=== PATIENT | female | born 1965 | race African-American/Black ===

== ENCOUNTER 2018-01-01 03:42 | Inpatient (IN) | payer BC ==
[~2018-01-01] VITALS: Ht 157.5 cm; Wt 81.6 kg
[2018-01-01] MEDS ORDERED: KETOROLAC 30MG/ML VIAL IV STA (06:31)
[2018-01-01] MEDS ORDERED: SODIUM CHLORIDE 0.9% 1,000 ML IV ONE (06:31)
[2018-01-01 06:58] LABS: HEMATOCRIT. 38.3 % (36.0-48.0); HEMOGLOBIN. 12.2 g/dL (12.0-16.0); MEAN CORPUSCULAR HEMOGLOBIN 27.5 pg (28.0-32.0); MEAN CORPUSCULAR VOLUME 86.1 fL (81.0-99.0); MEAN PLATELET VOLUME 7.6 fl (7.4-10.4); PLATELET 236 x1000/uL (130-400); RED BLOOD CELL COUNT 4.45 mill/uL (4.2-5.4); RED CELL DISTRIBUTION WIDTH 16.5 % (11.6-14.6)
[2018-01-01 07:05] LABS: CLARITY URINE TURBID (CLEAR); COLOR URINE ORANGE (YELLOW); KETONES URINE TRACE (NEGATIVE); LEUKOCYTE ESTERASE URINE TRACE (NEGATIVE); NITRITE URINE POSITIVE (NEGATIVE); OCCULT BLOOD URINE NEGATIVE (NEGATIVE); PROTEIN URINE 1+ (NEGATIVE)
[2018-01-01 07:10] LABS: CHLORIDE 108 mEq/L (98-107)
[2018-01-01 07:23] LABS: PLATELET ESTIMATE NORMAL
[2018-01-01] MEDS ORDERED: MORPHINE SULFATE 4 MG/ML CPJ (NOT FOR IM USE) IV STA (07:44)
[2018-01-01] MEDS ORDERED: ONDANSETRON HCL 4MG/2ML VIAL IV STA (07:44)
[2018-01-01] MEDS ORDERED: PIPERACILLIN/TAZ 3.375G PREMIX 50 ML IV ONE (07:45)
[2018-01-01] MEDS ORDERED: VANCOMYCIN 1 G PREMIX 200 ML IV ONE (07:45)
[2018-01-01] MEDS ORDERED: SODIUM CHLORIDE 0.9% 1000ML BAG (SEPSIS BOLUS) IV ONE (07:45)
[2018-01-01 08:52] LABS: *AMPHETAMINES SCREEN URINE NEGATIVE (NEGATIVE); *BARBITURATES SCREEN URINE NEGATIVE (NEGATIVE); *BENZODIAZEPINES SCREEN URINE NEGATIVE (NEGATIVE); *COCAINE SCREEN URINE NEGATIVE (NEGATIVE); CANNABINOID URINE SCREEN NEGATIVE (NEGATIVE); METHADONE URINE SCREEN NEGATIVE (NEGATIVE); OPIATES URINE SCREEN NEGATIVE (NEGATIVE); PHENCYCLIDINE URINE SCREEN NEGATIVE (NEGATIVE)
[2018-01-01 11:50] VITALS: BP 111/67
[2018-01-01 12:00] VITALS: BP 111/59
[2018-01-01] MEDS ORDERED: DOCUSATE SODIUM 100MG CAPSULE PO PRN (12:45)
[2018-01-01] MEDS ORDERED: CLONIDINE 0.1MG TABLET PO PRN (12:45)
[2018-01-01] MEDS ORDERED: ONDANSETRON HCL 4MG/2ML VIAL IV PRN (12:45)
[2018-01-01] MEDS ORDERED: ENOXAPARIN 40MG/0.4ML SYR SUBCUT SCH (12:45)
[2018-01-01] MEDS: ENOXAPARIN 30MG/0.3ML SYR SUBCUT SCH ×2 (13:33→20:41)
[2018-01-01] MEDS: HYDROCODONE/ACETAMINOPHEN 5/325MG TABLET PO PRN (13:36)
[2018-01-01 16:00] VITALS: BP 102/57
[2018-01-01] MEDS: LEVOFLOXACIN 500MG PREMIX 100 ML IV SCH ×2 (16:30→16:37)
[2018-01-01] MEDS: MORPHINE SULFATE 4 MG/ML CPJ (NOT FOR IM USE) IV PRN (17:23)
[2018-01-01] MEDS: VANCOMYCIN 750 MG PREMIX 150 ML IV SCH (17:57)
[2018-01-01 20:00] VITALS: BP 125/71
[2018-01-01] MEDS ORDERED: POTASSIUM CHLORIDE 20MEQ TABLET SR PO NR (20:30)
[2018-01-01] MEDS ORDERED: LACTULOSE 20G/30ML UDC PO PRN (20:30)
[2018-01-01] MEDS: ACETAMINOPHEN 325MG TABLET PO PRN (20:50)
[2018-01-02] VITALS: BP 114/58
[2018-01-02] MEDS: MORPHINE SULFATE 4 MG/ML CPJ (NOT FOR IM USE) IV PRN ×3 (02:17→19:32)
[2018-01-02] MEDS: VANCOMYCIN 750 MG PREMIX 150 ML IV SCH ×2 (02:17→15:14)
[2018-01-02] MEDS: ACETAMINOPHEN 325MG TABLET PO PRN (06:12)
[2018-01-02 06:35] LABS: HEMATOCRIT. 33.4 % (36.0-48.0); HEMOGLOBIN. 10.8 g/dL (12.0-16.0); MEAN CORPUSCULAR HEMOGLOBIN 27.8 pg (28.0-32.0); MEAN CORPUSCULAR VOLUME 86.5 fL (81.0-99.0); MEAN PLATELET VOLUME 8.5 fl (7.4-10.4); PLATELET 223 x1000/uL (130-400); RED BLOOD CELL COUNT 3.86 mill/uL (4.2-5.4); RED CELL DISTRIBUTION WIDTH 16.1 % (11.6-14.6)
[2018-01-02 07:09] LABS: CHLORIDE 108 mEq/L (98-107)
[2018-01-02 08:00] VITALS: BP 106/56
[2018-01-02] MEDS: HYDROCODONE/ACETAMINOPHEN 5/325MG TABLET PO PRN ×3 (09:26→21:12)
[2018-01-02] MEDS: ENOXAPARIN 30MG/0.3ML SYR SUBCUT SCH ×2 (09:26→21:06)
[2018-01-02 12:00] VITALS: BP 110/59
[2018-01-02 13:31] LABS: PLATELET ESTIMATE NORMAL
[2018-01-02] MEDS ORDERED: LIDOCAINE HCL/EPINEPHRINE 1%-EPI 1:100,000 30 ML VIAL INFIL NR (13:45)
[2018-01-02 16:00] VITALS: BP 138/77
[2018-01-02 20:00] VITALS: BP 137/76
[2018-01-03] VITALS: BP 109/68
[2018-01-03] MEDS: HYDROCODONE/ACETAMINOPHEN 5/325MG TABLET PO PRN ×2 (01:24→05:59)
[2018-01-03] MEDS: VANCOMYCIN 750 MG PREMIX 150 ML IV SCH ×2 (03:05→23:20)
[2018-01-03 04:00] VITALS: BP 115/52
[2018-01-03 07:14] LABS: HEMATOCRIT. 33.8 % (36.0-48.0); HEMOGLOBIN. 10.9 g/dL (12.0-16.0); MEAN CORPUSCULAR HEMOGLOBIN 27.9 pg (28.0-32.0); MEAN CORPUSCULAR VOLUME 86.5 fL (81.0-99.0); MEAN PLATELET VOLUME 8.2 fl (7.4-10.4); PLATELET 245 x1000/uL (130-400); RED CELL DISTRIBUTION WIDTH 15.9 % (11.6-14.6)
[2018-01-03 08:00] VITALS: BP 120/60
[2018-01-03] MEDS ORDERED: MORPHINE SULFATE 4 MG/ML CPJ (NOT FOR IM USE) IV PRN (08:11)
[2018-01-03] MEDS: ENOXAPARIN 30MG/0.3ML SYR SUBCUT SCH ×2 (08:43→21:00)
[2018-01-03 10:53] LABS: CHLORIDE 104 mEq/L (98-107)
[2018-01-03 11:03] LABS: PLATELET ESTIMATE NORMAL
[2018-01-03 11:47] VITALS: BP 116/59
[2018-01-03] MEDS ORDERED: VANCOMYCIN 1 G PREMIX 200 ML IV SCH (13:00)
[2018-01-03] MEDS ORDERED: TETANUS AND DIPHTHERIA TOX/PF 0.5ML SYR (ADULT) IM ONE (14:30)
[2018-01-03] MEDS: MORPHINE SULFATE 4 MG/ML CPJ (NOT FOR IM USE) IV PRN ×2 (15:03→20:24)
[2018-01-03] MEDS: LEVOFLOXACIN 500MG PREMIX 100 ML IV SCH (18:52)
[2018-01-03 20:00] VITALS: BP 119/77
[2018-01-03] MEDS ORDERED: POTASSIUM CHLORIDE 20MEQ TABLET SR PO SCH (20:00)
[2018-01-04] VITALS: BP 111/57
[2018-01-04] MEDS: MORPHINE SULFATE 4 MG/ML CPJ (NOT FOR IM USE) IV PRN ×3 (00:39→20:05)
[2018-01-04 04:00] VITALS: BP 120/81
[2018-01-04] MEDS: VANCOMYCIN 750 MG PREMIX 150 ML IV SCH ×2 (06:27→13:56)
[2018-01-04] MEDS: ENOXAPARIN 30MG/0.3ML SYR SUBCUT SCH ×2 (09:03→20:02)
[2018-01-04] MEDS ORDERED: TETANUS, DIPHTHERIA, PERTUSSIS VAC/PF 0.5ML (>7YR OLD) IM ONE (17:00)
[2018-01-04] MEDS: LEVOFLOXACIN 500MG PREMIX 100 ML IV SCH (17:29)
[2018-01-04 20:00] VITALS: BP 117/61
[2018-01-04] MEDS: VANCOMYCIN 1250MG in DEXTROSE 5% WATER 250ML IV SCH (22:46)
[2018-01-05] VITALS: BP 120/77
[2018-01-05 04:00] VITALS: BP 117/61
[2018-01-05] MEDS: MORPHINE SULFATE 4 MG/ML CPJ (NOT FOR IM USE) IV PRN (05:56)
[2018-01-05] MEDS: VANCOMYCIN 1250MG in DEXTROSE 5% WATER 250ML IV SCH ×2 (06:00→14:00)
[2018-01-05] MEDS: HYDROCODONE/ACETAMINOPHEN 5/325MG TABLET PO PRN (06:55)
[2018-01-05 08:00] VITALS: BP 122/70
[2018-01-05] MEDS: ENOXAPARIN 30MG/0.3ML SYR SUBCUT SCH (09:00)
[2018-01-05 12:00] VITALS: BP 128/69
[2018-01-05 15:56] VITALS: BP 122/70
== END 2018-01-05 17:38 | disposition home health service (06) | DRG 872 ==
LOC: ER 03:42 → 6EST 08:22 → EDBEDREQSVC 08:26 → EDBEDREQ 08:26 → EDBEDREQTM 08:26 → ENRESERV 10:11
PROVIDERS: ADMIT Hospitalist; ATTEND Hospitalist
PROC: 0H98XZZ Drainage of Buttock Skin, External Approach (ICD-10-PCS; principal; 2018-01-03)
DX: A41.9 Sepsis, unspecified organism (principal); E66.9 Obesity, unspecified; L02.31 Cutaneous abscess of buttock; L03.317 Cellulitis of buttock; N39.0 Urinary tract infection, site not specified; Z68.32 Body mass index [BMI] 32.0-32.9, adult; Z72.0 Tobacco use
CPT/HCPCS: 36415; 71045; 80053; 80202; 80305; 81003; 83605; 83735; 84132; 85025; 87040; 87070; 87076; 87086; 87205; 90714; 90715; 93005; 93970; 96361; 96365; 96366; 96368; 96375; 99285; C1893; J1650; J1885; J1956; J2270; J2405; J2543; J3370; J7030; J7040; J7060

== ENCOUNTER 2018-04-19 12:00 | Emergency (ER) | payer SELFPAY ==
[~2018-04-19] VITALS: Ht 154.9 cm; Wt 83.0 kg
[2018-04-19] MEDS ORDERED: IBUPROFEN 600MG TABLET PO ONE (13:15)
[2018-04-19 14:57] LABS: BASOPHILS % 1.3 % (0.0-2.0); EOSINOPHILS % 3.4 % (0.0-5.0); HEMATOCRIT. 37.9 % (36.0-48.0); HEMOGLOBIN. 12.1 g/dL (12.0-16.0); LYMPHOCYTES % 15.4 % (20.0-50.0); MEAN CORPUSCULAR HEMOGLOBIN 26.9 pg (28.0-32.0); MEAN CORPUSCULAR VOLUME 84.4 fL (81.0-99.0); MEAN PLATELET VOLUME 7.9 fl (7.4-10.4); MONOCYTES % 6.4 % (2.0-8.0); NEUTROPHILS % 73.5 % (40.0-76.0); PLATELET 252 x1000/uL (130-400); RED BLOOD CELL COUNT 4.48 mill/uL (4.2-5.4); RED CELL DISTRIBUTION WIDTH 16.8 % (11.6-14.6)
[2018-04-19] MEDS ORDERED: LIDOCAINE HCL 1% 20ML VIAL (Pyxis) INJ INFIL ONE (15:00)
[2018-04-19 15:01] LABS: CHLORIDE 110 mEq/L (98-107)
[2018-04-19 15:02] LABS: PROTHROMBIN TIME 10.5 sec (9.4-11.6)
[2018-04-19] MEDS ORDERED: LIDOCAINE HCL/PF 1% 10 MG/ML 5ML VIAL INL NR (15:10)
[2018-04-19 16:07] VITALS: BP 139/87
== END 2018-04-19 16:23 | disposition home or self-care (01) ==
LOC: ER 12:59
DX: L02.31 Cutaneous abscess of buttock (principal); I10 Essential (primary) hypertension
CPT/HCPCS: 10060; 36415; 80053; 81025; 85025; 85610; 99284; J3490

== ENCOUNTER 2020-02-07 12:50 | Emergency (ER) | payer BC ==
[~2020-02-07] VITALS: Ht 154.9 cm; Wt 92.9 kg
[2020-02-07] MEDS ORDERED: KETOROLAC 30MG/ML VIAL IV STA (13:21)
[2020-02-07] MEDS ORDERED: SODIUM CHLORIDE 0.9% 1,000 ML IV ONE (13:21)
[2020-02-07 14:05] LABS: EOSINOPHILS % 3.3 % (0.0-5.0); HEMATOCRIT. 45.8 % (36.0-48.0); HEMOGLOBIN. 15.4 g/dL (12.0-16.0); LYMPHOCYTES % 24.2 % (20.0-50.0); MEAN CORPUSCULAR VOLUME 92.6 fL (81.0-99.0); MONOCYTES % 5.5 % (2.0-8.0); PLATELET 221 x1000/uL (130-400); RED BLOOD CELL COUNT 4.95 mill/uL (4.2-5.4); RED CELL DISTRIBUTION WIDTH 13.3 % (11.6-14.6)
[2020-02-07 15:32] LABS: CLARITY URINE CLEAR (CLEAR); COLOR URINE YELLOW (YELLOW); KETONES URINE NEGATIVE (NEGATIVE); LEUKOCYTE ESTERASE URINE NEGATIVE (NEGATIVE); NITRITE URINE NEGATIVE (NEGATIVE); OCCULT BLOOD URINE NEGATIVE (NEGATIVE); PROTEIN URINE NEGATIVE (NEGATIVE); SPECIFIC GRAVITY URINE 1.015 (1.005-1.030); UROBILINOGEN URINE 0.2 E.U./dL (0.2-1.0)
[2020-02-07 15:39] LABS: CHLORIDE 108 mEq/L (98-107)
[2020-02-07 16:16] VITALS: BP 138/94
== END 2020-02-07 16:23 | disposition home or self-care (01) ==
LOC: ER 12:50
DX: R07.89 Other chest pain (principal); R10.32 Left lower quadrant pain; R03.0 Elevated blood-pressure reading, without diagnosis of hypertension; K44.9 Diaphragmatic hernia without obstruction or gangrene; D25.9 Leiomyoma of uterus, unspecified
CPT/HCPCS: 36415; 71045; 74176; 80053; 81003; 83690; 84484; 85025; 93005; 96374; 99285; J1885; J7030

== ENCOUNTER 2020-02-17 17:44 | Emergency (ER) | payer BC ==
[~2020-02-17] VITALS: Ht 152.4 cm; Wt 74.8 kg
[2020-02-17 18:08] VITALS: BP 160/99
== END 2020-02-17 18:15 | disposition home or self-care (01) ==
LOC: ER 17:44
DX: L02.414 Cutaneous abscess of left upper limb (principal); I10 Essential (primary) hypertension
CPT/HCPCS: 99283

== ENCOUNTER 2020-02-19 17:06 | Emergency (ER) | payer BC ==
[~2020-02-19] VITALS: Ht 157.5 cm; Wt 92.0 kg
[2020-02-19 17:20] VITALS: BP 136/80
== END 2020-02-19 19:05 | disposition home or self-care (01) ==
LOC: ER 17:06
DX: Z48.00 Encounter for change or removal of nonsurgical wound dressing (principal); I10 Essential (primary) hypertension
CPT/HCPCS: 99281; 99282

== ENCOUNTER 2020-06-19 11:24 | Emergency (ER) | payer BC ==
[~2020-06-19] VITALS: Ht 154.9 cm; Wt 95.0 kg
[2020-06-19 11:26] VITALS: BP 125/86
== END 2020-06-19 13:00 | disposition home or self-care (01) ==
LOC: ER 11:24
DX: U07.1 COVID-19 (principal)
CPT/HCPCS: 87635; 99283; C9803